=== PATIENT | male | born 1990 | race Caucasian/White ===

== ENCOUNTER 2024-01-31 18:56 | Emergency (ER) | payer MEDICARE, OTHER, SELFPAY ==
[2024-01-31] VITALS (7 sets, daily range): BP systolic 119–135; BP diastolic 75–92; PULSE 80–101; RESP 16–20; TEMP 36.7; O2SAT 95–98; BMI 26.4
--- NOTE | 2024-01-31 18:57 | PC.NURSE ---
Dr. Jaeger at [facility] for pt eval
--- NOTE | 2024-01-31 19:10 | HMH.EDGENADL ---
Discharge Plan Disposition Patient Disposition: Home, Self-Care Chief Complaint: Extremity Injury, Upper Prescriptions Prescriptions: No Action risperidone 4 mg Tablet 4 mg PO HS divalproex 500 mg Tablet Extended Release 24 Hr 500 mg PO DAILY Referrals Follow up/Referrals: Gatito Strong APRN [Primary Care Provider] - See instructions Activity Restrictions/Add. Instructions Additional Instructions/Restrictions: Talk to family doctor about seizure medications. Call your family doctor to establish care for this visit to the emergency department and schedule follow-up within 48 hours to ensure improvement. If you have any worsening of your condition or any other concerning signs or symptoms, return to the emergency department or your primary care doctor for further evaluation. Clinical Impressions Clinical Impression: Breakthrough seizure, Crispin's paralysis Discharge ED Provider: Michael Jaeger General Adult HPI General Chief complaint: Extremity Injury, Upper Stated complaint: seizure Time Seen by Provider: 01/31/24 19:04 History of Present Illness HPI narrative: Please note that above description of symptoms, in this electronic medical record under categorization of recalled from ER triage doctor by RN are reflective of an initial nursing assessment, however, is not reflective of my full history and physical exam that was personally taken and clarified. Consequentially, this preceding description of symptoms, which may include the patient's categorized chief complaint in the EMR, do not reflect my personal clinical impression, and the ultimate description of history of present illness and patient stated complaints should be deferred to this section of the note. Unless stated otherwise or congruent with this section of the note, additional signs, symptoms, or incongruence should be interpreted as inaccurate with my clinical impression. Related Data Home Medications Medication Instructions Recorded Confirmed divalproex 500 mg tablet,extended 500 mg PO DAILY 01/31/24 01/31/24 release 24 hr risperidone 4 mg tablet 4 mg PO HS 01/31/24 01/31/24 Allergies Allergy/AdvReac Type Severity Reaction Status Date / Time guaifenesin [From Mucinex] Allergy Verified 01/31/24 19:23 ketorolac [From Toradol] Allergy Verified 01/31/24 19:23 oseltamivir [From Tamiflu] Allergy Verified 01/31/24 19:23 trazodone Allergy Verified 01/31/24 19:23 [facility] Disclaimer: The information contained in this section may have been updated after the patient was seen, as this information can be updated by other users. Social History Smoking Status: Current every day smoker alcohol intake: never current occupational status: unemployed Travel in the last 8 weeks: None ROS Obtained: Yes All systems reviewed & no additional complaints except as documented Physical Exam General General appearance: alert and in no apparent distress Head Head exam: atraumatic and normocephalic Eye Eye exam: Present normal appearance, PERRL and EOMI ENT ENT exam: Present mucous membranes moist Neck Neck exam: Present normal inspection, full ROM and trachea midline Respiratory Respiratory exam: Absent respiratory distress, wheezes, stridor, accessory muscle use or prolonged expiratory phase Cardiovascular Cardiovascular exam: Present normal rhythm Abdominal Exam Abdominal exam: Present soft; Absent distention, tenderness, guarding, rebound or rigidity Extremities Exam Extremities exam: Absent edema Neurological Exam Neurological exam: Present alert, oriented X3, CN II-XII intact and normal gait; Absent motor sensory deficit Skin Skin exam: Present warm and dry; Absent diaphoresis or erythema Medical Decision Making Medical Records Medical records reviewed: Yes I reviewed the patient's medical records. [place] Inquiry Pt receiving controlled substance: No [place] was queried for this patient: No Vital Signs: 01/31/24 18:56 01/31/24 19:05 01/31/24 19:30 Temperature 98.1 F Temperature Source Oral Pulse Rate 101 H 88 Pulse Rate [Right Radial] 97 H Respiratory Rate 20 20 18 Blood Pressure 135/92 H 133/80 Blood Pressure [Right Arm] 135/92 H Blood Pressure Mean [Right Arm] 106 02 Sat by Pulse Oximetry 95 97 97 Oxygen Delivery Method Room Air Room Air Room Air 01/31/24 20:00 Temperature Temperature Source Pulse Rate 89 Pulse Rate [Right Radial] Respiratory Rate 16 Blood Pressure 135/75 Blood Pressure [Right Arm] Blood Pressure Mean [Right Arm] 02 Sat by Pulse Oximetry 96 Oxygen Delivery Method Room Air Lab Data Lab Results 01/31/24 19:00: WBC 6.9, RBC 4.76, Hgb 15.4, Hct 47.8, MCV 100.4 H, MCH 32.4 H, MCHC 32.3, RDW 14.0, Plt Count 272, MPV 8.8, Neut % (Auto) 60.6, Lymph % (Auto) 26.9, Sterling % (Auto) 7.0, Eos % (Auto) 3.5, Baso % (Auto) 2.0, Neut # (Auto) 4.2, Lymph # (Auto) 1.9, Sterling # (Auto) 0.5, Eos # (Auto) 0.2, Baso # (Auto) 0.1, Sodium 142, Potassium 4.3, Chloride 100, Carbon Dioxide 29, Anion Gap 17.3 H, BUN 13, Creatinine 0.90, Estimated Creat Clear 147, Estimated GFR 96, Est GFR ( Amer) 116, Glucose 118 H, Calcium 10.7 H, Magnesium 1.8, Total Bilirubin 0.5, AST 36, ALT 31, Alkaline Phosphatase 56, Total Protein 8.0, Albumin 4.7, Globulin 3.3 H, Albumin/Globulin Ratio 1.4 01/31/24 19:00 01/31/24 19:00 Orders (Tests/Meds): ED MEDICATIONS Discontinued Medications Generic Name Dose Route Start Last Admin Trade Name Freq PRN Reason Stop Dose Admin Divalproex Sodium 500 mg 01/31/24 19:05 01/31/24 19:25 Divalproex 500mg (Delayed-Release) Tablet PO 01/31/24 19:06 Not Given ONCE ONE Divalproex Sodium 500 mg 02/01/24 09:00 01/31/24 19:27 Divalproex 250mg (Extended-Release) Tablet PO 03/02/24 08:59 500 mg DAILY EDMAR Administration Divalproex Sodium 500 mg 01/31/24 19:26 01/31/24 19:30 Divalproex 250mg (Extended-Release) Tablet PO 01/31/24 19:27 Not Given ONCE ONE ORDERS Category Date Time Status CT head/brain wo con Stat Cat Scan 01/31/24 19:13 Taken CBC w/Auto Diff [Complete Blood Count Auto Diff] Stat Lab 01/31/24 19:00 Completed CMP [Comprehensive Metabolic Panel] Stat Lab 01/31/24 19:00 Completed Lactic Acid Stat Lab 01/31/24 20:30 Received Magnesium Stat Lab 01/31/24 19:00 Completed Medical Decision Narrative: 33-year-old male with history of seizure disorder presenting with seizure. Patient states this was a small 1 compared to the others. States it lasted for approximately 5 minutes, he remembers parts of it. States that afterward he is having trouble opening his right eye and generalized weakness on his right side. Patient states he is unable to lift his right arm without using his left arm, however when he lifts up his right arm with his left arm he is able to hold it in place and/or move around without issue. Denies vision changes, bowel or bladder dysfunction, tongue or cheek biting, headaches, vision changes, or any other concerns. He states that he recently had his Depakote decreased about a month prior to this visit from 7 50-500. History was obtained via conversation with patient and EMS. On arrival, patient hemodynamically stable, alert, oriented x4, appropriate, GCS 15, moving all extremities spontaneously, pupils equal and reactive to light. Full physical exam performed and significant for NIHSS 0. Patient's neurologic symptoms are distractible and disappear with questioning and provocative maneuvers. Cranial nerves, cerebellar, sensory exams grossly within normal limit. Cardiac exam normal. Patient alert and oriented. Differential includes epileptic seizure, nonepileptic seizure, panic attack, Crispin's paralysis, intracranial mass, among others. Patient was given Depakote 500 mg for symptomatic management and correction of underlying abnormalities. Workup independently interpreted and significant for nonactionable hematologic workup. CT head without acute intracranial abnormality.. See radiology read for full review of final results. On reevaluation, patient tolerating p.o. intake, back to neurologic baseline, requesting to leave. Because patient at baseline without signs or symptoms of clinical decompensation, deemed appropriate for discharge. Results were relayed to patient who voiced understanding and were agreeable to outpatient management and follow up. I discussed my clinical impression with patient and answered all questions. At this time, the evidence for any other entities in the differential is insufficient to warrant any further testing or ED observation. This was explained as well. Advisory was given that persistent or worsening symptoms require further evaluation. I confirmed the understanding of this discussion. Critical Care Critical Care Time Critical Care Time: No
--- NOTE | 2024-01-31 19:13 | CT_ITS ---
FINAL REPORT CLINICAL HISTORY: R sided weakness after seizure COMPARISON: None FINDINGS: Axial images of the head were obtained without contrast. Coronal and sagittal reformatted images were also obtained.This study was performed with techniques to keep radiation doses as low as reasonably achievable (ALARA). Individualized dose reduction techniques using automated exposure control or adjustment of mA and/or kV according to the patient's size were employed. There is no evidence of intracranial hemorrhage or mass. The ventricular size is within normal limits. There is no evidence of shift of the midline structures. No abnormal extra axial fluid collection is identified. No skull abnormality is seen on the bone window images. IMPRESSION: No acute intracranial abnormality. Reviewed, Interpreted and Dictated by Lance Alejandro III, MD Transcribed by Eva Srivastava Authenticated and [facility]
[2024-01-31 19:24] LABS: Basophils # 0.1 K/mm3 (0-0.2); Eosinophils # 0.2 K/mm3 (0.0-0.4); Eosinophils % 3.5 % (0.1-12.0); Hematocrit 47.8 % (42.0-52.0); Hemoglobin 15.4 g/dL (14.1-18.0); Lymphocytes # 1.9 K/mm3 (0.7-4.5); Lymphocytes % 26.9 % (10-50); Mean Corpuscular HGB Conc 32.3 g/dL (31.8-35.4); Mean Corpuscular Hemoglobin 32.4 pg (27.0-31.2); Mean Corpuscular Volume 100.4 fl (80-94); Mean Platelet Volume 8.8 fl (7.4-10.4); Monocytes # 0.5 K/mm3 (0.1-1.0); Neutrophils # 4.2 K/mm3 (1.8-7.8); Neutrophils % 60.6 % (37.0-80.0); Platelet Count 272 K/mm3 (142-424); Red Blood Count 4.76 M/mm3 (4.60-6.20); White Blood Count 6.9 K/mm3 (4.8-10.8)
[2024-01-31] MEDS: DIVALPROEX 250MG (EXTENDED-RELEASE) TABLET 500 MG PO (19:27)
[2024-01-31 19:31] LABS: Alanine Aminotransferase 31 U/L (12-78); Albumin Level 4.7 g/dl (3.5-5.0); Albumin/Globulin Ratio 1.4 (1.1-1.8); Alkaline Phosphatase 56 U/L (38-126); Anion Gap 17.3 mEq/L (5-15); Aspartate Amino Transferase 36 U/L (17-59); Bilirubin,Total 0.5 mg/dl (0.2-1.3); Blood Urea Nitrogen 13 mg/dl (9-20); Calcium 10.7 mg/dl (8.4-10.2); Carbon Dioxide 29 mmol/L (22.0-30.0); Chloride 100 mmol/L (98-107); Creatinine Clearance Estimated 147 mL/min (50-200); Estimated Glomerular Filt Rate 96 ml/min (>60); GFR (African American) 116 ML/MIN (>60); Globulin 3.3 g/dL (1.3-3.2); Glucose 118 mg/dl (74-100); Magnesium 1.8 mg/dl (1.6-2.3); Potassium 4.3 mmoL/L (3.5-5.1); Sodium 142 mmol/L (136-145)
--- NOTE | 2024-01-31 19:43 | PC.NURSE ---
patient assisted to bathroom
[2024-01-31 20:44] LABS: Lactic Acid 1.9 mmol/L (0.7-2.1)
--- NOTE | 2024-01-31 20:52 | PC.NURSE ---
received call from at [facility] for status update
--- NOTE | 2024-01-31 21:03 | PC.NURSE ---
call placed to [facility] for patient chart picker
== END 2024-01-31 21:26 | disposition home or self-care (01) ==
PROVIDERS: Emergency Provider Emergency Medicine; PCP Nurse Practitioner Acute Care
DX: G40.909 Epilepsy, unspecified, not intractable, without status epilepticus (principal); G83.84 Todd's paralysis (postepileptic)
CPT/HCPCS: 70450; 80053; 83605; 83735; 85025; 99284